=== PATIENT | female | born 1975 | race Caucasian/White ===

== ENCOUNTER → 2018-02-08 | Outpatient (CLI) | payer OTHER ==
[2018-02-08 12:59] LABS: ALBUMIN 3.8 g/dL (3.2-5.5); ALBUMIN/GLOBULIN RATIO 1.4 (1.0-2.2); ALKALINE PHOSPHATASE 42 IU/L (42-121); ALT ALANINE AMINOTRANSFERASE 13 IU/L (10-60); AST ASPARTATE AMINOTRANSFERASE 13 IU/L (10-42); BILIRUBIN,TOTAL 0.5 mg/dL (0.2-1.0); BUN - BLOOD UREA NITROGEN 12 mg/dL (6-20); CALCIUM 8.5 mg/dL (8.5-10.3); CARBON DIOXIDE - CO2 27 mmol/L (21-32); CHLORIDE 103 mmol/L (101-111); CREATININE 0.7 mg/dL (0.4-1.0); GFR - MDRD 91 (>89); GLUCOSE 88 mg/dL (70-100); SODIUM 137 mmol/L (135-145); TOTAL PROTEIN 6.5 g/dL (6.7-8.2)
[2018-02-08 13:06] LABS: BASOPHILS % (AUTO) 0.6 %; EOSINOPHILS # (AUTO) 0.1 10^3/uL (0.0-0.7); EOSINOPHILS % (AUTO) 2.2 %; HGB - HEMOGLOBIN 13.2 g/dL (12.0-16.0); LYMPHOCYTES # (AUTO) 1.7 10^3/uL (1.5-3.5); LYMPHOCYTES % (AUTO) 25.5 %; MEAN CORPUSCULAR HEMOGLOBIN 33.5 pg (27.0-31.0); MEAN CORPUSCULAR HGB CONC 35.4 g/dL (32.0-36.0); MEAN CORPUSCULAR VOLUME 94.6 fL (81.0-99.0); MEAN PLATELET VOLUME 9.2 fL (7.9-10.8); MONOCYTES # (AUTO) 0.5 10^3/uL (0.0-1.0); MONOCYTES % (AUTO) 7.2 %; NEUTROPHILS # (AUTO) 4.3 10^3/uL (1.5-6.6); NEUTROPHILS % (AUTO) 64.5 %; PLT - PLATELET COUNT 231 10^3/uL (130-450); RED BLOOD COUNT 3.94 10^6/uL (4.20-5.40); RED CELL DISTRIBUTION WIDTH 12.9 % (12.0-15.0); WHITE BLOOD COUNT 6.6 x10^3/uL (4.8-10.8)
== END ==
LOC: LAB.N 08:00
PROVIDERS: ATTEND Physician Assistant Medical
DX: Z00.00 Encounter for general adult medical examination without abnormal findings (principal); R41.840 Attention and concentration deficit; Z80.3 Family history of malignant neoplasm of breast; E06.3 Autoimmune thyroiditis; Z79.1 Long term (current) use of non-steroidal anti-inflammatories (NSAID); K29.00 Acute gastritis without bleeding; J30.81 Allergic rhinitis due to animal (cat) (dog) hair and dander; J30.2 Other seasonal allergic rhinitis; F39 Unspecified mood [affective] disorder
CPT/HCPCS: 36415; 80053; 84443; 85025; 86709

== ENCOUNTER 2018-02-25 10:02 | Outpatient (CLI) | payer OTHER | END 2018-02-25 10:03 | disposition home or self-care (01) | LOC: DI.N 10:02 | PROVIDERS: ATTEND Physician Assistant Medical | DX: Z12.31 Encounter for screening mammogram for malignant neoplasm of breast (principal) | CPT/HCPCS: 77067 ==

== ENCOUNTER 2018-03-11 09:41 | Outpatient (CLI) | payer OTHER ==
--- NOTE | 2018-03-11 11:38 | XRAY Report ---
Reason: ANKLE PAIN Procedure Date: 03/11/2018 Accession Number: [id number] / [id number] Procedure: XRN - Ankle 3 View LT CPT Code: FULL RESULT: EXAM: LEFT ANKLE RADIOGRAPHY EXAM DATE: 03/11/2018 10:00 AM. CLINICAL HISTORY: Ankle pain. Rolled ankle 9 days ago with continued pain. COMPARISON: None. TECHNIQUE: 3 views. FINDINGS: Bones: Normal. No fractures or bone lesions. Joints: Small joint effusion. Ankle mortise is intact. Medial and lateral joint space is within expected limits for technique. Soft Tissues: Mild bimalleolar soft tissue swelling greater laterally. IMPRESSION: No fracture. Small joint effusion and soft tissue swelling. RADIA
--- NOTE | 2018-03-11 12:13 | XRAY Report ---
Reason: ANKLE PAIN Procedure Date: 03/11/2018 Accession Number: [id number] / [id number] Procedure: XRN - Foot 2 View LT CPT Code: FULL RESULT: EXAM: LEFT FOOT RADIOGRAPHY EXAM DATE: 03/11/2018 10:00 AM. CLINICAL HISTORY: Ankle pain. COMPARISON: ANKLE 3 VIEW LT 03/11/2018 9:58 AM. TECHNIQUE: 2 views. FINDINGS: Bones: Normal. No fractures or bone lesions. Joints: Normal. No subluxations. Soft Tissues: Normal. No soft tissue swelling. IMPRESSION: Normal foot radiography. For ankle findings, please see separate dictation. RADIA
== END 2018-03-11 09:42 | disposition home or self-care (01) ==
LOC: DI.N 09:41
PROVIDERS: ATTEND Physician Assistant Medical
DX: M25.472 Effusion, left ankle (principal)

== ENCOUNTER 2019-06-02 07:00 | Outpatient (CLI) | payer BC, OTHER ==
[2019-06-02 19:04] LABS: THYROID STIMULATING HORMONE 2.31 uIU/mL (0.34-5.60)
[2019-06-02 19:05] LABS: FREE T4 (FREE THYROXINE) 0.94 ng/dL (0.58-1.64)
== END 2019-06-02 23:59 | disposition home or self-care (01) ==
LOC: LAB.N 07:00
PROVIDERS: ATTEND Physician Assistant Medical
DX: E06.3 Autoimmune thyroiditis (principal)
CPT/HCPCS: 36415; 84439; 84443; 84481

== ENCOUNTER 2019-11-24 08:00 | Outpatient (CLI) | payer BC ==
[2019-11-24 18:18] LABS: BASOPHILS % (AUTO) 0.6 %; EOSINOPHILS # (AUTO) 0.2 10^3/uL (0.0-0.7); EOSINOPHILS % (AUTO) 3.9 %; HGB - HEMOGLOBIN 13.7 g/dL (12.0-16.0); LYMPHOCYTES # (AUTO) 2.3 10^3/uL (1.5-3.5); LYMPHOCYTES % (AUTO) 44.4 %; MEAN CORPUSCULAR HEMOGLOBIN 32.9 pg (27.0-31.0); MEAN CORPUSCULAR HGB CONC 32.3 g/dL (32.0-36.0); MEAN CORPUSCULAR VOLUME 101.7 fL (81.0-99.0); MEAN PLATELET VOLUME 10.7 fL (7.9-10.8); MONOCYTES # (AUTO) 0.3 10^3/uL (0.0-1.0); MONOCYTES % (AUTO) 6.2 %; NEUTROPHILS # (AUTO) 2.3 10^3/uL (1.5-6.6); NEUTROPHILS % (AUTO) 44.7 %; PLT - PLATELET COUNT 267 10^3/uL (130-450); RED BLOOD COUNT 4.17 10^6/uL (4.20-5.40); RED CELL DISTRIBUTION WIDTH 12.8 % (12.0-15.0); WHITE BLOOD COUNT 5.2 x10^3/uL (4.8-10.8)
[2019-11-24 18:54] LABS: ALBUMIN 4.1 g/dL (3.2-5.5); ALBUMIN/GLOBULIN RATIO 1.5 (1.0-2.2); ALKALINE PHOSPHATASE 45 IU/L (42-121); ALT ALANINE AMINOTRANSFERASE 17 IU/L (10-60); AST ASPARTATE AMINOTRANSFERASE 15 IU/L (10-42); BILIRUBIN,TOTAL 0.5 mg/dL (0.2-1.0); BUN - BLOOD UREA NITROGEN 19 mg/dL (6-20); CALCIUM 9.2 mg/dL (8.5-10.3); CARBON DIOXIDE - CO2 25 mmol/L (21-32); CHLORIDE 106 mmol/L (101-111); CHOL/HDL RATIO 3.2 (<4.4); CHOLESTEROL 265 mg/dL; CREATININE 0.7 mg/dL (0.4-1.0); GLUCOSE 85 mg/dL (70-100); HDL CHOLESTEROL 82 mg/dL; LDL CHOLESTEROL,CALCULATED 173 mg/dL; LDL/HDL RATIO 2.1 (<4.4); SODIUM 137 mmol/L (135-145); TOTAL PROTEIN 6.8 g/dL (6.7-8.2); VLDL CHOLESTEROL 10 mg/dL
== END 2019-11-24 23:59 | disposition home or self-care (01) ==
LOC: LAB.WCP 08:00
PROVIDERS: ATTEND Family Medicine
DX: E06.3 Autoimmune thyroiditis (principal)
CPT/HCPCS: 36415; 80053; 80061; 83721; 84443; 85025

== ENCOUNTER 2020-02-10 14:44 | Outpatient (CLI) | payer BC ==
--- NOTE | 2020-02-10 17:33 | XRAY Report ---
PROCEDURE: Hip 1 View LT INDICATIONS: LEFT HIP PAIN TECHNIQUE: 2 views of the left hip were acquired. COMPARISON: None FINDINGS: Bones: No fractures or dislocations. No suspicious bony lesions. The visualized pelvic ring appear s intact. Mild bilateral hip osseous hypertrophy compatible with osteoarthritis. Soft tissues: Small, approximately 2 mm rounded desiccation projects over the lower right pelvis whic h could represent phlebolith, however small distal ureteral or bladder stone cannot be excluded by pl ain from radiograph. IMPRESSION: 1. Mild osteoarthritis. 2. Small 2 millimeter right pelvic phlebolith versus distal ureteral/bladder stone. Correlate with cl inical and urinalysis data. Reviewed by: Yaz Johnson MD, PhD on 02/10/2020 5:31 PM PST Approved by: Yaz Johnson MD, PhD on 02/10/2020 5:31 PM [facility] Station ID: [id number]
--- NOTE | 2020-02-10 17:37 | XRAY Report ---
PROCEDURE: Lumbar Spine 2 View INDICATIONS: LOW BACK PAIN TECHNIQUE: 2 views of the lumbar spine were acquired. COMPARISON: None. FINDINGS: Bones: 5 [id number] vertebrae are present. There is mild L1-L2, L2-L3 and L3-L4 retrolisthesis . Mild L1-L2, L2-L3 and L3-L4 degenerative disc disease. No vertebral body compression fractures. No suspicious bony lesions. Soft tissues: Overlying bowel gas pattern is normal. No suspicious soft tissue calcifications. IMPRESSION: 1. Multilevel degenerative disease. 2. Mild L1-L2, L2-L3 and L3-L4 degenerative retrolisthesis. 4. No fracture. No acute osseous lesion. If there is continued clinical concern for pathology, then M RI should be considered for further evaluation. Reviewed by: Yaz Johnson MD, PhD on 02/10/2020 5:36 PM PST Approved by: Yaz Johnson MD, PhD on 02/10/2020 5:36 PM PST Station ID: [id number]
== END 2020-02-10 23:59 | disposition home or self-care (01) ==
LOC: DI.WCP 14:44
PROVIDERS: ATTEND Physician Assistant
DX: M43.16 Spondylolisthesis, lumbar region (principal); M51.36 Other intervertebral disc degeneration, lumbar region; M16.12 Unilateral primary osteoarthritis, left hip; R93.89 Abnormal findings on diagnostic imaging of other specified body structures
CPT/HCPCS: 72100

== ENCOUNTER 2020-09-13 13:59 | Outpatient (CLI) | payer BC ==
[2020-09-13 16:32] VITALS: BP 120/60
--- NOTE | 2020-09-13 16:32 | SLEEP CARE CONSULTATION ---
Information from patient questionnaire entered by Ebony Curran. I have reviewed and concur with the information entered by Ebony Curran. This document represents the service I personally performed and the decisions made by me, Venita Bar MD, [facility]. History of Present Illness Service Date and Time: 09/13/2020 6952 Reason for Visit: New patient Chief Complaint: reports: Unrefreshed sleep, Observed pauses in breathing, Fatigue Date of Onset: years Usual bedtime: 9 pm Time it takes to fall asleep: 1 hour Snores at night: No (not sure) Observed to quit breathing while asleep: Yes Sleeps alone due to snoring: No Number of times waking at night: several Reasons for waking at night: reports: Gasping for air, Pain Toss, Turn, or Twitch while sleeping: Yes Recalls having dreams: Yes Usually gets out of bed at: 6 am Feels refreshed in the morning: No Morning headache: Yes (doesn't resolve) Sleepy or fatigued during the day: Yes Ever fallen asleep while driving: No Takes day naps: No Dreams during day naps: No Prior sleep studies: No Additional HPI information: I have the pleasure of seeing Ms. Anguiano today regarding the possibility of her having obstructive sleep apnea. As you know, she is a 45 year old lady who complains of observed apneas, frequent awakenings, unrefreshed sleep, and persistent fatigue, for several years. The patient tells me that she normally goes to bed around 9 pm, and it takes her approximately 60 minutes to fall asleep. She has not been told that she snores loudly or irregularly at night. She has never been observed to stop breathing in her sleep but she wakes up gasping for air. Her can still sleep in the same bed. She can recall waking up on the average of 10+ times during the night. Most of the time she wakes up because of pain. There is a lot of tossing and turning in her sleep. No somniloquy (sleep talking) or somnambulism (sleep walking). Generally she can recall having dreams. In the morning she usually gets up out of the bed around 6 a.m. not feeling refreshed nor rested. She usually has a morning headache. During the day she complains of feeling sleepy and fatigued. Her score on [place] Sleepiness Scale is 14 out of 24. She never has fallen asleep while driving nor has had any accident due to sleepiness. She usually does not take naps during the day. Upon falling asleep during the day she denies having vivid dreams. She reports having impaired concentration during the day. - Parasomnia Symptoms Ever been unable to move upon waking from sleep: No Walks in sleep: No Talks in sleep: No (don't know) Ever acted out dreams in sleep: Yes Ever felt weak in the knees when startled or emotional: No Bothered by creepy, crawly, restless sensations in legs: Yes Problems with memory or concentration: Yes Subjective Initial [place] Sleepiness Scale score: 14 (in 2020) Past Medical History Past Medical History: reports: Hypothyroidism, Asthma, Depression, Attention deficit Social History The patient's occupation is a [employer]. Patient is and lives in [place]. Have you smoked in the past 12 months: No Alcohol use: No Caffeine use: Yes Caffeine amount and frequency: 2 liters daily Family History Family history of sleep disordered breathing: Yes Family Hx Sleep Apnea: Mother: Snoring, Sleep apnea - Treated, Father: Snoring, Sleep apnea - Untreated, Sibling: Snoring, Sleep apnea - Untreated Allergies and Home Medications Drug allergies reviewed: Yes Home medication list reviewed: Yes Review of Systems Weight gain over past 5 years: 20 Weight loss over past 5 years: 15 Cardiovascular: denies: high blood pressure, palpitations, chest pain, irregular heart rate or pulse, leg or foot swelling, have to sleep sitting up, other Respiratory: reports: shortness of breath Gastrointestinal: reports: heartburn Urinary: reports: incontinence, frequency Neurological: reports: headaches, fainting or unconsciousness Psychiatric: reports: Attention Deficit Hyperactivity, depression Ear/Nose/Throat: reports: sinus problems Endocrine: reports: thyroid disease Musculoskeletal: reports: joint pain, neck pain, back pain, joint swelling, muscle pain or cramping Immunologic: reports: sneezing, itching, allergies to food or environment Physical Exam Vital signs obtained and entered by: Dr. Bar Blood Pressure: 120/60 Cuff size: regular Heart Rate: 80 O2 Saturation: 99 Height: 5 ft 9 in Weight: 155 lb Body Mass Index: 22.8 BMI Classification: Healthy weight Mood/affect: normal HEENT: No craniofacial malformation Nostrils: patent to airflow Turbinates: normal Septum: midline Mouth and throat: narrow oropharynx Soft palate: long Hard palate: normal Uvula: normal Uvula visualization: 50% Mallampati Class II Tongue: normal in size Tonsils: small Chin and jaw: normal size and position Neck: normal w/o lymphadenopathy or thyromegaly Heart: regular rate and rhythm Lungs: clear bilaterally Extremities: no edema or clubbing Neurologic: intact Impression and Plan IMPRESSION: 1. Obstructive Sleep Apnea-Hypopnea Syndrome, as evident by history of observed cessation of breath while asleep, nocturnal choking, frequent awakenings during the night, unrefreshed sleep, persistent fatigue, and daytime hypersomnolence. Narrow oropharynx is a common predisposing factor for obstructive sleep apnea-hypopnea syndrome. I recommend proceeding to polysom nography to confirm the diagnosis and to assess severity. If she has significant sleep disordered breathing, a manual CPAP titration study will also be performed to find the optimal treatment pressure. I informed the patient of what the sleep studies involve and after some discussion, she would like to first have a home sleep apnea test (HSAT). 2. Insomnia, involving the sleep onset and sleep maintenance. Excessive time spent in bed most likely plays a role. On week nights, she spends 9 hours in bed and on weekends, 11 hours. Plan: 1. Schedule a home sleep apnea test (HSAT) 2. Avoid long distance driving or when feeling sleepy. 3. Avoid alcohol, sedative and muscle relaxant around bedtime. 4. Maintain a regular wake up time and spend no more than 8 hours in bed at night. Avoid naps. 5. Return for a follow up after the test. Visit Type: In Office Time Spent with Patient (minutes): 15 Provider Statement: I spent 100% of the Face to Face Visit with the patient with greater than 50% spent counseling the patient and coordination of care.
== END 2020-09-13 14:00 | disposition home or self-care (01) ==
LOC: SC 13:59
PROVIDERS: ATTEND Internal Medicine Pulmonary Disease
DX: G47.10 Hypersomnia, unspecified (principal); R06.81 Apnea, not elsewhere classified; G47.8 Other sleep disorders; R53.83 Other fatigue; G47.00 Insomnia, unspecified
CPT/HCPCS: 99202; 99212

== ENCOUNTER 2020-09-24 13:47 | Outpatient (CLI) | payer BC | END 2020-09-24 13:48 | disposition home or self-care (01) | LOC: SC 13:47 | PROVIDERS: ATTEND Internal Medicine Pulmonary Disease | DX: G47.10 Hypersomnia, unspecified (principal); R53.83 Other fatigue; G47.8 Other sleep disorders; G47.00 Insomnia, unspecified; R09.02 Hypoxemia | CPT/HCPCS: 95806 ==

== ENCOUNTER 2020-10-11 13:38 | Outpatient (CLI) | payer BC ==
--- NOTE | 2020-10-11 16:50 | SLEEP CARE CONSULTATION ---
Information from patient questionnaire entered by Ebony Curran. I have reviewed and concur with the information entered by Ebony Curran. This document represents the service I personally performed and the decisions made by me, Venita Bar MD, [facility]. History of Present Illness Service Date and Time: 10/11/2020 1338 Initial [place] Sleepiness Scale score: 14 (in 2020) Current [place] Sleepiness Scale score: 18 Additional HPI information: HPI: Ms. Anguiano returned for follow up of the home sleep apnea test (HSAT) she had on 09/25/2020. The test showed no significant sleep disordered breathing. The AHI was 3.4 and hector oxygen saturation, 89%. However, the quality of the test was [id number] due to frequent data loss. The patient was informed of these findings. I explained to her that the test was of poor quality. She reports sensors falling off at night despite her taping them. Her main complaint is fatigue. And because she constantly fatigued, she tries to sleep more, which causes her to have insomnia. Sleep Study - Results Type of Sleep Study: Home sleep study Prior sleep studies: No Allergies and Home Medications Drug allergies reviewed: Yes Home medication list reviewed: Yes Review of Systems Review of systems same as previous: Yes Physical Exam Height: 5 ft 9 in Weight: 155 lb Body Mass Index: 22.8 BMI Classification: Healthy weight Impression and Plan IMPRESSION: 1. Persistent fatigue, of unclear etiology. Because she snores and wakes up gasping for air at night, I recommend proceeding to an in-laboratory polysomnography for further evaluation. The sleep study can also shredder picker other sleep disrupting conditions besides sleep-disordered breathing. The patient is in agreement.. PLAN: 1. Schedule an in-laboratory polysomnography. 2. Maintain a regular wake up time and spend no more than 8 hours in bed at night. Avoid naps. 3. Return for a follow up after the sleep study. Visit Type: In Office Time Spent with Patient (minutes): 15 Provider Statement: I spent 100% of the Face to Face Visit with the patient with greater than 50% spent counseling the patient and coordination of care.
== END 2020-10-11 13:39 | disposition home or self-care (01) ==
LOC: SC 13:38
PROVIDERS: ATTEND Internal Medicine Pulmonary Disease
DX: R53.83 Other fatigue (principal); R06.83 Snoring
CPT/HCPCS: 99212